=== PATIENT | female | born 1945 | race Two or more races ===

== ENCOUNTER 2018-03-25 11:51 | Inpatient (IN) | payer OTHER ==
[~2018-03-25] VITALS: Ht 162.6 cm; Wt 79.4 kg
[2018-03-25] MEDS ORDERED: GLYCOTROL CAPS1 EACH PO (12:37)
[2018-03-25] MEDS ORDERED: SYNTHROID50 MCG PO (12:37)
[2018-03-25] MEDS ORDERED: COLAGENO PO (12:38)
[2018-03-25] MEDS ORDERED: [UNRECOGNIZED DRUG - MIXTURE] (12:38)
[2018-03-25] MEDS ORDERED: LEXAPRO20 MG PO (12:39)
[2018-03-25] MEDS ORDERED: GABAPENTIN300 MG PO (12:39)
[2018-03-25] MEDS ORDERED: PREVACID30 MG PO (12:39)
[2018-03-25] MEDS ORDERED: ULTRACET PO (12:40)
[2018-04-05] MEDS ORDERED: INTESTINEX680 M1 PO (16:04)
[2018-04-05] MEDS ORDERED: PERCOCET 5-3251 EACH PO (16:04)
[2018-04-05] MEDS ORDERED: OMEPRAZOLE20 MG PO (16:05)
== END 2018-04-05 16:30 | disposition home or self-care (01) | DRG 331 ==
LOC: SURG 04-02 06:18 → O/R 04-02 06:18 → SURH 04-02 07:00 → SURG 04-02 13:36
PROVIDERS: Surgery
PROC: 0DJD8ZZ Inspection of Lower Intestinal Tract, Via Natural or Artificial Opening Endoscopic (ICD-10-PCS; 2018-04-02)
PROC: 0DTN4ZZ Resection of Sigmoid Colon, Percutaneous Endoscopic Approach (ICD-10-PCS; principal; 2018-04-02 07:00)
DX: K57.32 Diverticulitis of large intestine without perforation or abscess without bleeding (principal); E03.8 Other specified hypothyroidism; M79.7 Fibromyalgia; R73.01 Impaired fasting glucose; D64.89 Other specified anemias; F41.8 Other specified anxiety disorders

== ENCOUNTER 2018-04-23 08:45 | Emergency (ER) | payer OTHER ==
[~2018-04-23] VITALS: Ht 162.6 cm; Wt 74.8 kg
[~2018-04-23 08:45] MED LIST: COLAGENO PO; GABAPENTIN300 MG PO; GLYCOTROL CAPS1 EACH PO; INTESTINEX680 M1 PO; LEXAPRO20 MG PO; OMEPRAZOLE20 MG PO; PERCOCET 5-3251 EACH PO; PREVACID30 MG PO; SYNTHROID50 MCG PO; ULTRACET PO; [UNRECOGNIZED DRUG - MIXTURE]
== END 2018-04-23 13:00 | disposition home or self-care (01) ==
LOC: ER 08:45 → SEC-K 10:02 → ER 10:02 → SEC-K 19:07
DX: K52.89 Other specified noninfective gastroenteritis and colitis (principal)

== ENCOUNTER 2018-11-27 12:27 | Emergency (ER) | payer OTHER ==
[~2018-11-27] VITALS: Ht 167.6 cm; Wt 77.1 kg
== END 2018-11-27 20:03 | disposition home or self-care (01) ==
LOC: ER 12:27
DX: G43.809 Other migraine, not intractable, without status migrainosus (principal)

== ENCOUNTER 2019-04-28 08:08 | Day surgery (SDC) | payer OTHER | END 2019-04-28 11:30 | disposition home or self-care (01) | LOC: AMB-ENDOS 08:08 → CIR.AMB 12:00 → AMB-ENDOS 12:00 | DX: K62.1 Rectal polyp (principal); K63.5 Polyp of colon; K57.30 Diverticulosis of large intestine without perforation or abscess without bleeding ==